=== PATIENT | male | born 2000 | race Two or more races ===

== ENCOUNTER 2020-10-07 22:18 | Emergency (ER) | payer OTHER ==
[~2020-10-07] VITALS: Ht 193 cm; Wt 84.4 kg
[2020-10-07 22:22] VITALS: BP 161/96
[2020-10-07] MEDS ORDERED: MAALOX/HYOSCYAMINE/LIDOCAINE 45 ML BTL PO ONE (23:30)
[2020-10-07] MEDS ORDERED: PLEASE ENTER ALLERGIES MC SCH (23:30)
[2020-10-07 23:32] LABS: BASOPHILS % (AUTO) 0 % (0-1); EOSINOPHILS % (AUTO) 2 % (1-7); LYMPHOCYTES % (AUTO) 18 % (22-44); MEAN PLATELET VOLUME 7.5 fL (7.4-10.4); MONOCYTES % (AUTO) 7 % (2-9); NEUTROPHILS % (AUTO) 73 % (42-75); PLATELET COUNT 243 x10^3/uL (130-400); RED CELL DISTRIBUTION WIDTH 12.2 % (9.4-14.8)
[2020-10-07 23:42] LABS: MD NO
[2020-10-07 23:49] LABS: ALANINE AMINOTRANSFERASE 32 U/L (12-78); ALBUMIN 4.3 g/dL (3.4-5.0); ANION GAP 6 mmol/L (5-15); CALCIUM 9.7 mg/dL (8.5-10.1); CHLORIDE 107 mmol/L (98-107)
[2020-10-07 23:51] LABS: ALKALINE PHOSPHATASE 128 U/L (45-117); BILIRUBIN,TOTAL 0.4 mg/dL (0.2-1.0); TOTAL PROTEIN 7.5 g/dL (6.4-8.2)
--- NOTE | 2020-10-08 00:09 | NUR ---
able seaman: pt from lobby to room 22
[2020-10-08] MEDS ORDERED: MAALOX/HYOSCYAMINE/LIDOCAINE 45 ML BTL ONE (00:27)
== END 2020-10-08 01:31 | disposition home or self-care (01) ==
LOC: ED 10-08 01:15
DX: K29.00 Acute gastritis without bleeding (principal); R10.32 Left lower quadrant pain; J45.909 Unspecified asthma, uncomplicated
CPT/HCPCS: 36415; 80053; 83690; 85025; 99283